=== PATIENT | female | born 2000 | race Caucasian/White ===

== ENCOUNTER 2020-12-21 14:22 | Inpatient (IN) | payer SELFPAY ==
[~2020-12-21] VITALS: Ht 160 cm; Wt 64.1 kg
--- NOTE | 2020-12-21 14:34 | NUR ---
Pt arrived in custody. C/O left sided abd pain. 710. 9 weeks . Recieved fentanyl and zofran in ambulance. denies vaginal bleeding and discharge.
[2020-12-21 15:46] LABS: ALBUMIN 2.8 g/dL (3.4-5.0); ANION GAP 7 mmol/L (5-15); CALCIUM 8.6 mg/dL (8.5-10.1); CHLORIDE 106 mmol/L (98-107); CREATININE 0.43 mg/dL (0.55-1.02)
[2020-12-21 15:48] LABS: LYMPHOCYTES % (AUTO) 17 % (22-44); MEAN CORPUSCULAR HEMOGLOBIN 30.5 pg (27.0-34.8); MONOCYTES % (AUTO) 8 % (2-9); NEUTROPHILS % (AUTO) 75 % (42-75); PLATELET COUNT 252 x10^3/uL (130-400); RED BLOOD COUNT 3.81 x10^6/uL (3.82-5.3); RED CELL DISTRIBUTION WIDTH 14.4 % (9.6-15.2)
[2020-12-21 15:49] LABS: BASOPHILS % (AUTO) 0 % (0-1); EOSINOPHILS % (AUTO) 0 % (1-7)
[2020-12-21] MEDS ORDERED: SODIUM CHLORIDE FLUSH 10ML SYR IVF ONE (16:30)
[2020-12-21] MEDS ORDERED: SODIUM CHLORIDE 0.9% 1,000ML IVBOLUS ONE (16:30)
[2020-12-21] MEDS ORDERED: ONDANSETRON 2MG/ML, 2ML IVPush ONE (16:30)
[2020-12-21] MEDS ORDERED: PLEASE ENTER ALLERGIES MC SCH (16:30)
[2020-12-21] MEDS ORDERED: MORPHINE SULFATE 4 MG/ML, 1ML ONE ×2 (16:41→18:24)
[2020-12-21] MEDS ORDERED: ONDANSETRON 2MG/ML, 2ML ONE (16:41)
[2020-12-21] MEDS: MORPHINE SULFATE 4 MG/ML, 1ML IVPush PRN ×2 (16:44→18:28)
--- NOTE | 2020-12-21 16:49 | NUR ---
MD in to update patient. Appendix not seen on US. MRI ordered. Pt medicated.
[2020-12-21 17:38] LABS: MICROSCOPIC INDICATED
[2020-12-21] MEDS ORDERED: CEFOTETAN PMX 1GM/50ML 50 ML IV ONE (19:00)
--- NOTE | 2020-12-21 19:15 | NUR ---
ILIANA swab walked to lab at this time.
--- NOTE | 2020-12-21 19:28 | NUR ---
Report given to Vesta Vazquez no further questions at this time.
[2020-12-21] MEDS ORDERED: BISACODYL 10 MG SUPP PR PRN (20:30)
[2020-12-21] MEDS ORDERED: ONDANSETRON 2MG/ML, 2ML IVPush PRN (20:30)
[2020-12-21 20:45] VITALS: BP 94/54
[2020-12-21 21:26] LABS: AMPHETAMINE SCREEN, URINE Negative (Negative); BARBITURATE SCREEN, URINE Negative (Negative); BENZODIAZEPINE SCREEN, URINE Negative (Negative); CANNABINOID SCREEN, URINE Negative (Negative); COCAINE SCREEN, URINE Negative (Negative); METHADONE SCREEN, URINE Negative (Negative); OPIATE SCREEN, URINE Negative (Negative)
[2020-12-21] MEDS: morphine SULFATE 10 MG/ML, 1ML IVPush PRN (22:08)
[2020-12-22] MEDS ORDERED: BUPIVACAINE/PF 0.5% ONE (01:30)
[2020-12-22] MEDS ORDERED: EPINEPHRINE 1 MG/ML, 1ML ONE (01:30)
[2020-12-22] MEDS ORDERED: FENTANYL PF 250 MCG/5ML ONE (01:56)
[2020-12-22] MEDS ORDERED: DEXAMETHASONE 4 MG/ML, 1ML ONE (01:58)
[2020-12-22] MEDS ORDERED: SUGAMMADEX 200 MG/2 ML IVPush ONE (02:01)
[2020-12-22] MEDS ORDERED: ROCURONIUM 10 MG/ML,10ML ONE (02:01)
[2020-12-22] MEDS ORDERED: PROPOFOL 10 MG/ML, 20ML ONE (02:01)
[2020-12-22] MEDS ORDERED: CEFOTETAN 1 GM ONE (02:01)
[2020-12-22] MEDS ORDERED: ONDANSETRON 2MG/ML, 2ML ONE (02:01)
[2020-12-22] MEDS ORDERED: EPHEDRINE 50 MG/ML, 1ML ONE (02:01)
[2020-12-22] MEDS ORDERED: BUPIVACAINE/PF-EPI 0.5% 1:200K IM ONE (02:18)
[2020-12-22] MEDS ORDERED: FENTANYL PF 100 MCG/2ML ONE ×2 (02:59→03:21)
[2020-12-22] MEDS ORDERED: EPHEDRINE 50 MG/ML, 1ML IVPush PRN (03:00)
[2020-12-22] MEDS ORDERED: PROMETHAZINE 12.5 MG SUPP PR PRN (03:00)
[2020-12-22] MEDS ORDERED: LABETALOL 5MG/ML, 20ML IV PRN (03:00)
[2020-12-22] MEDS ORDERED: HYDROmorphone 1 MG/ML, 1ML INJ IVPush PRN (03:00)
[2020-12-22] MEDS ORDERED: DIPHENHYDRAMINE 50 MG/ML, 1ML IVPush PRN ×2 (03:00)
[2020-12-22] MEDS ORDERED: PROMETHAZINE 25 MG/ML, 1ML IVPush PRN (03:00)
[2020-12-22] MEDS ORDERED: OXYcodone 5 MG/5 ML ORAL.SOL UDC PO PRN (03:00)
[2020-12-22] MEDS: FENTANYL PF 100 MCG/2ML IV PRN ×3 (03:00→03:23)
[2020-12-22] MEDS ORDERED: hydrALAzine 20 MG/ML, 1ML IV PRN (03:00)
[2020-12-22] MEDS ORDERED: MEPERIDINE/PF 25MG/0.5ML IVPush PRN (03:00)
[2020-12-22] MEDS ORDERED: ACETAMINOPHEN 325 MG TABLET PO PRN (03:00)
[2020-12-22] MEDS ORDERED: ONDANSETRON 2MG/ML, 2ML IVPush PRN (03:00)
[2020-12-22] MEDS ORDERED: OXYcodone/APAP 5/325MG TABLET PO PRN (03:00)
[2020-12-22] MEDS ORDERED: ALBUTEROL SULFATE 2.5 MG/3 ML NPPB PRN (03:00)
[2020-12-22] MEDS ORDERED: ACETAMINOPHEN 650 MG/20.3 ML UDC ONE (03:10)
[2020-12-22] MEDS ORDERED: OXYcodone 5 MG/5 ML ORAL.SOL UDC ONE (03:10)
[2020-12-22 03:49] VITALS: BP 96/64
[2020-12-22 05:17] LABS: BASOPHILS % (AUTO) 0 % (0-1); EOSINOPHILS % (AUTO) 0 % (1-7); LYMPHOCYTES % (AUTO) 10 % (22-44); MEAN CORPUSCULAR HEMOGLOBIN 30.6 pg (27.0-34.8); MEAN CORPUSCULAR HGB CONC 33.7 g/dL (32.4-35.8); MEAN PLATELET VOLUME 7.6 fL (7.4-10.4); MONOCYTES % (AUTO) 4 % (2-9); NEUTROPHILS % (AUTO) 86 % (42-75); PLATELET COUNT 245 x10^3/uL (130-400)
[2020-12-22 05:39] LABS: ANION GAP 7 mmol/L (5-15); CALCIUM 8.5 mg/dL (8.5-10.1); CHLORIDE 102 mmol/L (98-107)
[2020-12-22 05:41] LABS: CREATININE 0.73 mg/dL (0.55-1.02)
[2020-12-22] MEDS: morphine SULFATE 10 MG/ML, 1ML IVPush PRN ×4 (05:41→12:14)
[2020-12-22] MEDS: CEFOTETAN PMX 1GM/50ML 50 ML IV SCH ×2 (07:20→18:27)
[2020-12-22 08:20] VITALS: BP 96/62
[2020-12-22] MEDS: SENNA/DOCUSATE TABLET PO SCH (09:00)
[2020-12-22 12:14] VITALS: BP 104/65
[2020-12-22] MEDS: ACETAMINOPHEN 325 MG TABLET PO PRN ×3 (14:14→22:37)
[2020-12-22 18:43] VITALS: BP 101/58
[2020-12-22] MEDS ORDERED: OLAN7.5T3 PO (20:30)
[2020-12-22] MEDS ORDERED: OLANZAPINE 5 MG TABLET ONE (20:42)
[2020-12-22] MEDS ORDERED: OLANZAPINE 2.5 MG TABLET PO SCH (21:00)
[2020-12-23 01:19] VITALS: BP 104/64
[2020-12-23] MEDS: ACETAMINOPHEN 325 MG TABLET PO PRN ×2 (06:21→13:04)
[2020-12-23] MEDS: CEFOTETAN PMX 1GM/50ML 50 ML IV SCH (06:21)
[2020-12-23 06:58] VITALS: BP 100/55
[2020-12-23] MEDS: SENNA/DOCUSATE TABLET PO SCH (08:30)
[2020-12-23] MEDS ORDERED: ACET325T26 PO (12:18)
[2020-12-23] MEDS ORDERED: PREN1COM15 PO (12:30)
[2020-12-23 13:06] VITALS: BP 103/57
== END 2020-12-23 13:43 | DRG 817 ==
LOC: ED 14:52 → EDIP 20:19 → 4NE 20:36
PROVIDERS: ADMIT Internal Medicine; ATTEND Internal Medicine
PROC: 3E0234Z Introduction of Serum, Toxoid and Vaccine into Muscle, Percutaneous Approach (ICD-10-PCS; 2020-12-21)
PROC: 0DJD4ZZ Inspection of Lower Intestinal Tract, Percutaneous Endoscopic Approach (ICD-10-PCS; principal; 2020-12-22 01:30)
DX: O99.611 Diseases of the digestive system complicating pregnancy, first trimester (principal); I60.9 Nontraumatic subarachnoid hemorrhage, unspecified; D64.9 Anemia, unspecified; F15.11 Other stimulant abuse, in remission; K37 Unspecified appendicitis; O26.891 Other specified pregnancy related conditions, first trimester; O99.011 Anemia complicating pregnancy, first trimester; Z20.822 Contact with and (suspected) exposure to COVID-19; Z3A.09 9 weeks gestation of pregnancy; Z87.891 Personal history of nicotine dependence; Z90.49 Acquired absence of other specified parts of digestive tract
CPT/HCPCS: 36415; 87806; 96361; 96372; 96374; 99285; S0020; 74181; 76830; 76857; 80048; 80074; 80307; 81001; 82040; 84702; 85025; 86592; 86706; 86708; 86850; 86900; 87077; 87086; 87426; G0378; J0171; J1100; J2405; J2704; J2790; J3010; G0475; J2270; J7030